=== PATIENT | female | born 1930 | race Caucasian/White ===

== ENCOUNTER 2016-11-30 13:19 | Inpatient (IN) | payer MEDICARE, OTHER ==
--- NOTE | ~2016-11-30 | HP ---
History And Physical [place] [id number] [facility] [place]. [address] NAME: ALVA COLEMAN : [birth year] STATUS : ADM IN [facility]#: [id number] AGE: 86 ADM/REG DATE : 11/30/16 MR#: [id number] REPORT SERV DATE: 11/30/16 DICTATED BY: RADHA SANCHES DATE: 11/30/16 REPORT STATUS : Draft TRANSCRIBED BY: MESERET DATE: 11/30/16 DATE OF ADMISSION: 11/30/2016 CHIEF COMPLAINT: Shortness of breath, fever. HISTORY OF PRESENT ILLNESS: The patient is an 86-year-old white female, who about three days ago, developed left lower extremity swelling and shortness of breath. She also had fever to 102 and shaking chills. She was thought to have pneumonia and was actually treated with antibiotics at the assisted living facility according to the gonugjck-br-fya who was at bedside. She states she failed to improve and she became so short of breath that she finally presented to the hospital today. She denies chest pain. She denies abdominal pain and does states she has had some shortness of breath and feels better on oxygen now that she is on oxygen. She has had some left leg swelling for a few days and she has some redness to her anterior tibia. She had fever and chills, but no cough. PAST MEDICAL HISTORY: Positive for: 1. CLL, in remission. 2. Atrial fibrillation status post cardioversion, on antiarrhythmics. 3. Osteoarthritis. 4. GERD. 5. Dementia. 6. Bullous pemphigoid with history of completing Rituxan in September, now on methotrexate for indefinite period of time. 7. Obesity. SOCIAL HISTORY: She is a nondrinker, nonsmoker. She resides at [facility]. FAMILY HISTORY: Negative for any blood clots. HOME MEDICATIONS: Reviewed and attached. PAST SURGICAL HISTORY: She has had a kyphoplasty, as well as a hysterectomy. REVIEW OF SYSTEMS: A full ten-point review of systems obtained. Pertinent positives mentioned in the HPI. PHYSICAL EXAMINATION: VITAL SIGNS: Temp 99.4, BP 140/75, sats 98% on 6 L. Pulse is in the 90s. GENERAL: Well-developed white female, pleasant and talkative. HEENT: Normocephalic, atraumatic. Throat clear. NECK: Supple. HEART: Regular rate and rhythm. LUNGS: She is diminished at the bases. ABDOMEN: Soft, nontender, nondistended. EXTREMITIES: Warm and dry. Her both lower extremities have palpable pulses at the feet. History And Physical [address] [address] NAME: ALVA COLEMAN : [birth year] STATUS : ADM IN PAT#: [id number] AGE: 86 ADM/REG DATE : 11/30/16 MR#: [id number] REPORT SERV DATE: 11/30/16 DICTATED BY: RADHA SANCHES DATE: 11/30/16 REPORT STATUS : Draft TRANSCRIBED BY: MESERET DATE: 11/30/16 Her left lower extremity is erythematous with some ecchymosis. It is red, swollen, and tender to the touch and mostly red around the left lateral tibia, and has about 2+ doughy edema on the left. SKIN: Otherwise intact. Her pemphigoid seems to have healed. She does have some scarring about her abdominal wall and thorax from it. NEURO: She is alert. She is pleasantly confused and demented. She moves all four extremities, but is generally weak. LABORATORY AND X-RAY: Chest x-ray shows left basal atelectasis versus infiltrate. ABG 7.52/29/43. CT of the chest shows bilateral PEs and bilateral interstitial and airspace disease scattered throughout the upper middle and lower lobes with regions of consolidation at the lung bases and a large hiatal hernia. CBC: White count of 10, H and H 11.6 and 34, and platelets are 208. Coags are normal. Flu swab is negative. Chemistry panel: Sodium 137, potassium 4.6, chloride 102, CO2 26. BUN and creatinine 42 and 1.38. Glucose 118. Troponins 0.03. Lactate was 1.7. BNP was 136. EKG showed sinus tachycardia with occasional PVCs in the right bundle. ASSESSMENT/PLAN: 1. Bilateral pulmonary thromboembolic disease with probable deep vein thrombosis in the left lower extremity. Duplex is pending. We will admit and place on an IV heparin drip. Continue O2 to keep sats above 95%. Place her on a tele bed. She could likely be switched to an oral anticoagulant in the next 24-48 hours. Certainly, it would be easier to use something such as Xarelto versus Coumadin, but we will defer that to the attending physician on the floor tomorrow. We will continue supportive care. I am going to perform a duplex of her left lower extremity and go from there. 2. Fever. This certainly could be due to the pulmonary embolus, but she does have some consolidation on her CT scan. I think it is reasonable to cover her with pneumonia antibiotics just until we rule out an infectious component to some of her presentation. We will send off some cultures, procalcitonin, cover her with Rocephin and azithromycin overnight. 3. Left lower extremity swelling, likely secondary to deep vein thrombosis. Awaiting duplex. 4. History of dementia. 5. History of chronic lymphocytic leukemia, in remission. 6. History of gastroesophageal reflux disease remotely. 7. History of bullous pemphigoid, currently in remission. Continue methotrexate. 8. Deep venous thrombosis prophylaxis. She is going to be fully anticoagulated. 9. Likely chronic kidney disease. Her creatinine is 1.38 today I noticed in the past, but it has been previously. We will follow this closely. We will do some labs in the morning. 10.Disposition, pending above. NICOLÁS/MESERET History And Physical [address] [address] NAME: ALVA COLEMAN : [birth year] STATUS : ADM IN [facility]#: [id number] AGE: 86 ADM/REG DATE : 11/30/16 MR#: [id number] REPORT SERV DATE: 11/30/16 DICTATED BY: RADHA SANCHES DATE: 11/30/16 REPORT STATUS : Draft TRANSCRIBED BY: MESERET DATE: 11/30/16 Radha Sanches M.D. / [id number] CC: MD LETICIA Sandoval ROBERT L. Brooke R. Daniel, M.D.
--- NOTE | ~2016-11-30 | DS ---
Discharge Summary [facility] [address] [facility] [place]. [address] NAME: ALVA COLEMAN : [birth year] STATUS : DIS IN PAT#: [id number] AGE: 86 ADM/REG DATE : 11/30/16 MR#: [id number] REPORT SERV DATE: 12/10/16 DICTATED BY: FIDEL TORRES DATE: 12/10/16 REPORT STATUS : Draft TRANSCRIBED BY: MODL DATE: 12/10/16 ADMISSION DATE: 11/30/2016 DISCHARGE DATE: 12/10/2016 REASON FOR ADMISSION: This is an 86-year-old female who was admitted with shortness of breath and fever. In the emergency room, she was found to have a left lower extremity that was erythematous with some ecchymosis, red swollen, and tender to touch. She would have a CT of the chest that did show bilateral PEs and bilateral interstitial and airspace disease scattered throughout the upper and middle and lower lobes with regions of consolidation at the lung bases and then the lower extremity ultrasound which showed extensive DVT of the left lower extremity, appears acute calf vein involvement and also involvement of the junction of the greater saphenous common femoral vein. DISCHARGE DIAGNOSES: 1. Bilateral pulmonary embolism with left lower extremity deep venous thrombosis. 2. Left lower extremity cellulitis and edema. 3. Anemia. 4. Chronic kidney disease 3. 5. Acute hypoxic respiratory failure. 6. History of chronic lymphocytic leukemia. 7. History of bullous pemphigoid. 8. Dementia. 9. Chronic nosebleeds. 10.Moderate malnutrition. HOSPITAL COURSE: 1. Bilateral PE with left lower extremity DVT. The patient admitted and started on IV heparin drip. She was admitted to the floor as she was hemodynamically stable and on oxygen 3 to 4 L nasal cannula. She would eventually be transitioned to oral Eliquis and her oxygen will be weaned off. 2. Left lower extremity cellulitis. The patient had profound erythema, warmth, and redness of the left lower extremity. It had been initially gave the chance to clear on its own with anticoagulation, however, by day 5, the patient still had intense red painful area from just below the knee all the way to the ankle. Therefore, decision was made to start her on IV Ancef. After three days of IV Ancef, she had significant clearing of the erythema, and she was also diuresed with IV Lasix and then transitioned to oral torsemide. She still has some residual edema of the left extremity as well as redness, but it is much improved. She has been transitioned to oral Duricef and will need to complete four more days. 3. Anemia with Hemoccult-positive stool. The patient has had anemia while here at the hospital, but her hemoglobin is stable at 10.8. Her stools were hemocculted and were Hemoccult-positive. Due to her age and comorbidities, unclear whether she is even a candidate for colonoscopy, however, we will have her follow up with GI in one month. 4. CKD 3. Creatinine stable at 1.2. 5. Acute hypoxic respiratory failure. The patient weaned off oxygen. O2 sats within normal limits on room air. Discharge Summary [address] [place]. [address] NAME: ALVA COLEMAN : [birth year] STATUS : DIS IN PAT#: [id number] AGE: 86 ADM/REG DATE : 11/30/16 MR#: [id number] REPORT SERV DATE: 12/10/16 DICTATED BY: FIDEL TORRES DATE: 12/10/16 REPORT STATUS : Draft TRANSCRIBED BY: MESERET DATE: 12/10/16 6. History of CLL. The patient's white blood cell count stable at 7.3. 7. Dementia. The patient's mental status at baseline. 8. Chronic nosebleeds. The patient has chronic nosebleeds. Thankfully, has not had any nosebleeds here at the hospital after being started on anticoagulants strangely enough, but she has very thick clots and in both nares of her nose and we have started treating her with Safe Gel four times a day, trying to soften the clot, so they will resolve on their own. Certainly, I do not want to remove them with her on anticoagulation. 9. Moderate malnutrition. The patient showed a very little desire to move, get out of bed, feed herself, and question her drive to get better, therefore she has had poor appetite while being here. We have placed her on Ensure t.i.d. which she has drank some how and starting her on Remeron leaving the hospital, stopping her Lexapro, and putting her on Remeron. Discussed with, son even though she has gotten through this acute event, her big picture outlook is actually quite poor and unless her nutrition intake and drive to get up, move, and be active increases suspect that she has a strong chance of needing hospice before years end due to her age comorbidities and apparent failure to thrive. However, we will attempt for rehab stay and see if we can get her back to her assisted living at . DISCHARGE PLAN: The patient is discharged to rehab and hopefully be able to return to [facility]. Follow up with her primary care after rehab and GI in one month. RACHID/MALIKL Fidel Torres APN / [id number] CC: Albina Thomas M.D.
[~2016-11-30 13:19] MED LIST: ASA5GR PO; ASAEC PO; B121000P IM; CLARIT10 PO; FLECAINIDE50 MG PO; FOLIC PO; IBU600 PO; LEVOTHYROXIN75 MCG PO; LEXAPRO20 PO; NORV5 PO; P5 PO; TAMBO50 PO; TREXALL5 MG PO
[2016-11-30 13:29] LABS: ALLENS TEST Pos; BE (BASE EXCESS) 0.5 MEQ/L (0 +/- 2.5); CARBOXYHEMOGLOBIN 1.3 % (0-3); HCO3 (ACTUAL BICARBONATE) 22.5 MEQ/L (23-27); INSTRUMENT SERIAL # 8087; METHEMOGLOBIN 0.5 % (0-3); O2 CONTENT 13.6 VOL% (18-24); OPERATOR ID 14335; PCO2 (CO2 TENSION) 29 MMHG (35-45); PO2 (O2 TENSION) 43 MMHG (79-93); SAMPLE Arterial; pH 7.52 (7.37-7.43)
[2016-11-30 13:39] LABS: BASOPHILS 0.1 %; BASOPHILS ABSOLUTE 0.01 10/3/uL (0.0-0.16); EOSINOPHILS 0 %; HEMATOCRIT 34.3 % (36.0-48.0); HEMOGLOBIN 11.6 g/dL (12.0-16.0); IMMATURE GRANULOCYTES 0.5 %; IMMATURE GRANULOCYTES ABSOLUTE 0.05 10/3/uL (0.0-0.11); LYMPHOCYTES 2.6 %; LYMPHOCYTES ABSOLUTE 0.26 10/3/uL (0.67-4.30); MEAN CORPUS HGB CONC 33.8 g/dL (32.0-36.0); MEAN CORPUSCULAR HEMOGLOB 32.9 pg (26.0-34.0); MEAN CORPUSCULAR VOLUME 97.2 fL (80-100); MEAN PLATELET VOLUME 9.2 fL (9.2-13.0); NEUTROPHILS 93.8 %; NEUTROPHILS ABSOLUTE 9.45 10/3/uL (2.02-8.40); RBC DISTRIBUTION WIDTH 16.3 % (12.0-16.0); RED CELL COUNT 3.53 10/6/uL (4.0-5.6); WHITE BLOOD CELLS 10.1 10/3/uL (4.5-10.5)
[2016-11-30 13:40] LABS: MANUAL DIFF NO %; PLATELET COUNT 208 10/3/uL (150-400)
[2016-11-30 13:46] LABS: INTERNATIONAL NORMAL RATI 1.3 UNITS (-); PARTIAL THROMBO TIME 25.8 SEC (22.5-37.2); PROTIME (NOT ORD) 15.6 SEC (12.0-14.5)
[2016-11-30 13:53] LABS: INFLUENZA A SCREEN NEGATIVE (NEGATIVE); INFLUENZA B SCREEN NEGATIVE (NEGATIVE)
[2016-11-30 13:55] LABS: BUN (BLOOD UREA NITROGEN) 42 MG/DL (6-23); CALCIUM, SERUM 7.6 MG/DL (8.5-10.4); CHEST PAIN PROFILE TAT 0 Hrs 20 Mins; CHLORIDE, SERUM 102 MMOL/L (96-112); CO2 (CARBON DIOXIDE) 26 MMOL/L (24-34); CREATININE 1.38 MG/DL (0.55-1.02); GFR AFRICAN AMERICAN 39 ML/MIN (>=60); GFR NON AFRICAN AMERICAN 34 ML/MIN (>=60); GLUCOSE, SERUM 118 MG/DL (60-99); POTASSIUM, SERUM 4.6 MMOL/L (3.5-5.3); SODIUM, SERUM 137 MMOL/L (135-148); TROPONIN I 0.03 NG/ML (<0.05)
[2016-11-30 14:01] LABS: LACTATE 1.7 MMOL/L (0.3-2.4)
[2016-11-30 17:00] LABS: PROCALCITONIN 0.09 ng/mL (<0.5)
[2016-12-01 03:56] LABS: CALCIUM, SERUM 7.8 MG/DL (8.5-10.4); CHLORIDE, SERUM 104 MMOL/L (96-112); CO2 (CARBON DIOXIDE) 27 MMOL/L (24-34); CREATININE 1.18 MG/DL (0.55-1.02); GFR AFRICAN AMERICAN 48 ML/MIN (>=60); GFR NON AFRICAN AMERICAN 41 ML/MIN (>=60); POTASSIUM, SERUM 4.2 MMOL/L (3.5-5.3); SODIUM, SERUM 139 MMOL/L (135-148)
[2016-12-01 03:58] LABS: BUN (BLOOD UREA NITROGEN) 35 MG/DL (6-23); GLUCOSE, SERUM 85 MG/DL (60-99)
[2016-12-01 04:42] LABS: BASOPHILS 0.2 %; BASOPHILS ABSOLUTE 0.02 10/3/uL (0.0-0.16); EOSINOPHILS 0.8 %; EOSINOPHILS ABSOLUTE 0.07 10/3/uL (0.0-0.53); HEMATOCRIT 35.7 % (36.0-48.0); HEMOGLOBIN 12.1 g/dL (12.0-16.0); IMMATURE GRANULOCYTES 0.6 %; IMMATURE GRANULOCYTES ABSOLUTE 0.05 10/3/uL (0.0-0.11); LYMPHOCYTES ABSOLUTE 0.89 10/3/uL (0.67-4.30); MANUAL DIFF NO %; MEAN CORPUS HGB CONC 33.9 g/dL (32.0-36.0); MEAN CORPUSCULAR HEMOGLOB 33.1 pg (26.0-34.0); MEAN CORPUSCULAR VOLUME 97.5 fL (80-100); MEAN PLATELET VOLUME 9.4 fL (9.2-13.0); MONOCYTES 2.2 %; NEUTROPHILS 86.2 %; NEUTROPHILS ABSOLUTE 7.66 10/3/uL (2.02-8.40); PLATELET COUNT 249 10/3/uL (150-400); RBC DISTRIBUTION WIDTH 16.4 % (12.0-16.0); RED CELL COUNT 3.66 10/6/uL (4.0-5.6); WHITE BLOOD CELLS 8.9 10/3/uL (4.5-10.5)
[2016-12-02 06:29] LABS: BASOPHILS 0.1 %; BASOPHILS ABSOLUTE 0.01 10/3/uL (0.0-0.16); EOSINOPHILS 0.9 %; EOSINOPHILS ABSOLUTE 0.08 10/3/uL (0.0-0.53); HEMATOCRIT 33.9 % (36.0-48.0); HEMOGLOBIN 11.4 g/dL (12.0-16.0); IMMATURE GRANULOCYTES 0.3 %; IMMATURE GRANULOCYTES ABSOLUTE 0.03 10/3/uL (0.0-0.11); LYMPHOCYTES 9.4 %; LYMPHOCYTES ABSOLUTE 0.88 10/3/uL (0.67-4.30); MEAN CORPUS HGB CONC 33.6 g/dL (32.0-36.0); MEAN CORPUSCULAR HEMOGLOB 31.8 pg (26.0-34.0); MEAN PLATELET VOLUME 9.1 fL (9.2-13.0); MONOCYTES 0.6 %; MONOCYTES ABSOLUTE 0.06 10/3/uL (0.21-1.20); NEUTROPHILS 88.7 %; PLATELET COUNT 292 10/3/uL (150-400); RBC DISTRIBUTION WIDTH 16.2 % (12.0-16.0); RED CELL COUNT 3.59 10/6/uL (4.0-5.6); WHITE BLOOD CELLS 9.4 10/3/uL (4.5-10.5)
[2016-12-02 06:31] LABS: MANUAL DIFF NO %; MEAN CORPUSCULAR VOLUME 94.4 fL (80-100)
[2016-12-02 06:41] LABS: CALCIUM, SERUM 7.8 MG/DL (8.5-10.4); CHLORIDE, SERUM 100 MMOL/L (96-112); CO2 (CARBON DIOXIDE) 23 MMOL/L (24-34); CREATININE 0.94 MG/DL (0.55-1.02); GFR AFRICAN AMERICAN 63 ML/MIN (>=60); GFR NON AFRICAN AMERICAN 54 ML/MIN (>=60); GLUCOSE, SERUM 97 MG/DL (60-99); SODIUM, SERUM 135 MMOL/L (135-148)
[2016-12-02 06:42] LABS: BUN (BLOOD UREA NITROGEN) 29 MG/DL (6-23)
[2016-12-03 06:22] LABS: BASOPHILS 0.2 %; BASOPHILS ABSOLUTE 0.02 10/3/uL (0.0-0.16); EOSINOPHILS 1.3 %; EOSINOPHILS ABSOLUTE 0.11 10/3/uL (0.0-0.53); HEMATOCRIT 31.5 % (36.0-48.0); HEMOGLOBIN 10.8 g/dL (12.0-16.0); IMMATURE GRANULOCYTES 0.5 %; IMMATURE GRANULOCYTES ABSOLUTE 0.04 10/3/uL (0.0-0.11); LYMPHOCYTES 11.9 %; LYMPHOCYTES ABSOLUTE 0.98 10/3/uL (0.67-4.30); MEAN CORPUS HGB CONC 34.3 g/dL (32.0-36.0); MEAN CORPUSCULAR HEMOGLOB 32.2 pg (26.0-34.0); MEAN PLATELET VOLUME 9.4 fL (9.2-13.0); MONOCYTES 2.7 %; MONOCYTES ABSOLUTE 0.22 10/3/uL (0.21-1.20); NEUTROPHILS 83.4 %; NEUTROPHILS ABSOLUTE 6.84 10/3/uL (2.02-8.40); PLATELET COUNT 324 10/3/uL (150-400); RBC DISTRIBUTION WIDTH 15.9 % (12.0-16.0); RED CELL COUNT 3.35 10/6/uL (4.0-5.6); WHITE BLOOD CELLS 8.2 10/3/uL (4.5-10.5)
[2016-12-03 06:23] LABS: MANUAL DIFF NO %
[2016-12-03 09:51] LABS: BUN (BLOOD UREA NITROGEN) 31 MG/DL (6-23); CHLORIDE, SERUM 100 MMOL/L (96-112); CO2 (CARBON DIOXIDE) 26 MMOL/L (24-34); CREATININE 0.99 MG/DL (0.55-1.02); GFR AFRICAN AMERICAN 59 ML/MIN (>=60); GFR NON AFRICAN AMERICAN 51 ML/MIN (>=60); GLUCOSE, SERUM 92 MG/DL (60-99); SODIUM, SERUM 136 MMOL/L (135-148)
[2016-12-03 14:11] LABS: ALLENS TEST Pos; BE (BASE EXCESS) -2.1 MEQ/L (0 +/- 2.5); CARBOXYHEMOGLOBIN 0.3 % (0-3); DEVICE NC; HCO3 (ACTUAL BICARBONATE) 20.7 MEQ/L (23-27); HEMOBLOGIN CONTENT 11.7 G/DL (12-16); INSTRUMENT SERIAL # 35151; METHEMOGLOBIN 0.4 % (0-3); O2 CONTENT 14.9 VOL% (18-24); PCO2 (CO2 TENSION) 29 MMHG (35-45); PO2 (O2 TENSION) 61 MMHG (79-93); SAMPLE Arterial; pH 7.47 (7.37-7.43)
[2016-12-04 07:25] LABS: BASOPHILS 0.3 %; BASOPHILS ABSOLUTE 0.02 10/3/uL (0.0-0.16); EOSINOPHILS 2.6 %; EOSINOPHILS ABSOLUTE 0.17 10/3/uL (0.0-0.53); HEMATOCRIT 29.2 % (36.0-48.0); HEMOGLOBIN 9.9 g/dL (12.0-16.0); IMMATURE GRANULOCYTES 1.1 %; IMMATURE GRANULOCYTES ABSOLUTE 0.07 10/3/uL (0.0-0.11); LYMPHOCYTES 14.9 %; LYMPHOCYTES ABSOLUTE 0.96 10/3/uL (0.67-4.30); MEAN CORPUS HGB CONC 33.9 g/dL (32.0-36.0); MEAN CORPUSCULAR HEMOGLOB 32.7 pg (26.0-34.0); MEAN CORPUSCULAR VOLUME 96.4 fL (80-100); MEAN PLATELET VOLUME 9.1 fL (9.2-13.0); MONOCYTES ABSOLUTE 0.26 10/3/uL (0.21-1.20); NEUTROPHILS 77.1 %; NEUTROPHILS ABSOLUTE 4.95 10/3/uL (2.02-8.40); PLATELET COUNT 349 10/3/uL (150-400); RBC DISTRIBUTION WIDTH 15.9 % (12.0-16.0); RED CELL COUNT 3.03 10/6/uL (4.0-5.6); WHITE BLOOD CELLS 6.4 10/3/uL (4.5-10.5)
[2016-12-04 07:27] LABS: MANUAL DIFF NO %
[2016-12-04 07:51] LABS: A/G RATIO 0.7 (0.7-1.9); ALKALINE PHOSPHATASE 62 U/L (45-117); BUN (BLOOD UREA NITROGEN) 24 MG/DL (6-23); CHLORIDE, SERUM 102 MMOL/L (96-112); CO2 (CARBON DIOXIDE) 25 MMOL/L (24-34); CREATININE 0.93 MG/DL (0.55-1.02); GFR AFRICAN AMERICAN 64 ML/MIN (>=60); GFR NON AFRICAN AMERICAN 55 ML/MIN (>=60); GLOBULIN 2.9 G/DL (2.5-4.1); GLUCOSE, SERUM 87 MG/DL (60-99); POTASSIUM, SERUM 4.4 MMOL/L (3.5-5.3); PREALBUMIN 7.8 MG/DL (17.0-43.0); SGOT(AST) 55 U/L (5-40); SGPT(ALT) 28 U/L (5-65); SODIUM, SERUM 136 MMOL/L (135-148); TOTAL BILIRUBIN 0.5 MG/DL (0-1.2); TOTAL PROTEIN 4.9 G/DL (6.0-8.5)
[2016-12-04 12:56] LABS: % IRON SAT 13 % (20-50); FERRITIN 595 NG/ML (8-252); IRON BINDING CAPACITY 196 MCG/DL (225-410); IRON, SERUM 25 MCG/DL (35-150)
[2016-12-04 13:42] LABS: PROCALCITONIN 0.17 ng/mL (<0.5)
[2016-12-04 14:23] LABS: ASCORBIC ACID (UR NOT ORDER) NEG (NEG); BILIRUBIN, URINE NEGATIVE (NEG); KETONE, URINE NEGATIVE (NEG); LEUKOCYTE ESTERASE(NOT OR NEG (NEG); WBC (NOT ORDERED) (RFLEX) < 1 (0-5)
[2016-12-05 05:40] LABS: BASOPHILS 0.3 %; BASOPHILS ABSOLUTE 0.02 10/3/uL (0.0-0.16); EOSINOPHILS 2.2 %; EOSINOPHILS ABSOLUTE 0.16 10/3/uL (0.0-0.53); HEMATOCRIT 29.9 % (36.0-48.0); HEMOGLOBIN 10.2 g/dL (12.0-16.0); IMMATURE GRANULOCYTES 0.8 %; IMMATURE GRANULOCYTES ABSOLUTE 0.06 10/3/uL (0.0-0.11); LYMPHOCYTES 13.3 %; LYMPHOCYTES ABSOLUTE 0.97 10/3/uL (0.67-4.30); MEAN CORPUS HGB CONC 34.1 g/dL (32.0-36.0); MEAN CORPUSCULAR HEMOGLOB 32.9 pg (26.0-34.0); MEAN CORPUSCULAR VOLUME 96.5 fL (80-100); MEAN PLATELET VOLUME 8.6 fL (9.2-13.0); MONOCYTES 4.9 %; MONOCYTES ABSOLUTE 0.36 10/3/uL (0.21-1.20); NEUTROPHILS 78.5 %; NEUTROPHILS ABSOLUTE 5.74 10/3/uL (2.02-8.40); PLATELET COUNT 384 10/3/uL (150-400); RBC DISTRIBUTION WIDTH 16.3 % (12.0-16.0); WHITE BLOOD CELLS 7.3 10/3/uL (4.5-10.5)
[2016-12-05 05:43] LABS: MANUAL DIFF NO %
[2016-12-05 05:54] LABS: BUN (BLOOD UREA NITROGEN) 24 MG/DL (6-23); CALCIUM, SERUM 8.1 MG/DL (8.5-10.4); CHLORIDE, SERUM 101 MMOL/L (96-112); CO2 (CARBON DIOXIDE) 27 MMOL/L (24-34); CREATININE 1.07 MG/DL (0.55-1.02); GFR AFRICAN AMERICAN 54 ML/MIN (>=60); GFR NON AFRICAN AMERICAN 46 ML/MIN (>=60); GLUCOSE, SERUM 77 MG/DL (60-99); POTASSIUM, SERUM 3.9 MMOL/L (3.5-5.3); SODIUM, SERUM 137 MMOL/L (135-148)
[2016-12-06 07:08] LABS: BASOPHILS 0.4 %; BASOPHILS ABSOLUTE 0.03 10/3/uL (0.0-0.16); EOSINOPHILS 2.3 %; EOSINOPHILS ABSOLUTE 0.18 10/3/uL (0.0-0.53); HEMATOCRIT 29.1 % (36.0-48.0); HEMOGLOBIN 9.8 g/dL (12.0-16.0); IMMATURE GRANULOCYTES 1.3 %; LYMPHOCYTES ABSOLUTE 1.08 10/3/uL (0.67-4.30); MEAN CORPUS HGB CONC 33.7 g/dL (32.0-36.0); MEAN CORPUSCULAR VOLUME 95.1 fL (80-100); MEAN PLATELET VOLUME 9.2 fL (9.2-13.0); MONOCYTES 7.6 %; MONOCYTES ABSOLUTE 0.59 10/3/uL (0.21-1.20); NEUTROPHILS 74.4 %; NEUTROPHILS ABSOLUTE 5.76 10/3/uL (2.02-8.40); PLATELET COUNT 399 10/3/uL (150-400); RED CELL COUNT 3.06 10/6/uL (4.0-5.6); WHITE BLOOD CELLS 7.7 10/3/uL (4.5-10.5)
[2016-12-06 07:09] LABS: MANUAL DIFF NO %
[2016-12-06 07:24] LABS: BUN (BLOOD UREA NITROGEN) 23 MG/DL (6-23); CALCIUM, SERUM 7.8 MG/DL (8.5-10.4); CHLORIDE, SERUM 97 MMOL/L (96-112); CO2 (CARBON DIOXIDE) 25 MMOL/L (24-34); CREATININE 1.01 MG/DL (0.55-1.02); GFR AFRICAN AMERICAN 58 ML/MIN (>=60); GFR NON AFRICAN AMERICAN 50 ML/MIN (>=60); GLUCOSE, SERUM 80 MG/DL (60-99); POTASSIUM, SERUM 4.2 MMOL/L (3.5-5.3); SODIUM, SERUM 136 MMOL/L (135-148)
[2016-12-07 05:56] LABS: BASOPHILS 0.3 %; BASOPHILS ABSOLUTE 0.03 10/3/uL (0.0-0.16); EOSINOPHILS 2.3 %; HEMOGLOBIN 10.5 g/dL (12.0-16.0); IMMATURE GRANULOCYTES 0.9 %; IMMATURE GRANULOCYTES ABSOLUTE 0.08 10/3/uL (0.0-0.11); LYMPHOCYTES ABSOLUTE 1.06 10/3/uL (0.67-4.30); MEAN CORPUS HGB CONC 32.7 g/dL (32.0-36.0); MEAN CORPUSCULAR HEMOGLOB 31.6 pg (26.0-34.0); MEAN CORPUSCULAR VOLUME 96.7 fL (80-100); MEAN PLATELET VOLUME 8.8 fL (9.2-13.0); MONOCYTES 8.9 %; MONOCYTES ABSOLUTE 0.79 10/3/uL (0.21-1.20); NEUTROPHILS 75.6 %; NEUTROPHILS ABSOLUTE 6.69 10/3/uL (2.02-8.40); PLATELET COUNT 499 10/3/uL (150-400); RBC DISTRIBUTION WIDTH 16.2 % (12.0-16.0); RED CELL COUNT 3.32 10/6/uL (4.0-5.6); WHITE BLOOD CELLS 8.9 10/3/uL (4.5-10.5)
[2016-12-07 05:57] LABS: HEMATOCRIT 32.1 % (36.0-48.0); MANUAL DIFF NO %
[2016-12-07 06:05] LABS: BUN (BLOOD UREA NITROGEN) 22 MG/DL (6-23); CALCIUM, SERUM 8.1 MG/DL (8.5-10.4); CHLORIDE, SERUM 94 MMOL/L (96-112); CO2 (CARBON DIOXIDE) 29 MMOL/L (24-34); CREATININE 1.15 MG/DL (0.55-1.02); GFR AFRICAN AMERICAN 49 ML/MIN (>=60); GFR NON AFRICAN AMERICAN 42 ML/MIN (>=60); GLUCOSE, SERUM 91 MG/DL (60-99); SODIUM, SERUM 138 MMOL/L (135-148)
[2016-12-07 06:08] LABS: POTASSIUM, SERUM 3.1 MMOL/L (3.5-5.3)
[2016-12-08 05:47] LABS: BUN (BLOOD UREA NITROGEN) 24 MG/DL (6-23); CALCIUM, SERUM 8.4 MG/DL (8.5-10.4); CHLORIDE, SERUM 94 MMOL/L (96-112); CO2 (CARBON DIOXIDE) 32 MMOL/L (24-34); CREATININE 1.27 MG/DL (0.55-1.02); GFR AFRICAN AMERICAN 44 ML/MIN (>=60); GFR NON AFRICAN AMERICAN 38 ML/MIN (>=60); GLUCOSE, SERUM 101 MG/DL (60-99); POTASSIUM, SERUM 3.6 MMOL/L (3.5-5.3); SODIUM, SERUM 135 MMOL/L (135-148)
[2016-12-09 04:48] LABS: BASOPHILS 0.4 %; BASOPHILS ABSOLUTE 0.03 10/3/uL (0.0-0.16); EOSINOPHILS 2.9 %; EOSINOPHILS ABSOLUTE 0.21 10/3/uL (0.0-0.53); HEMATOCRIT 32.3 % (36.0-48.0); HEMOGLOBIN 10.8 g/dL (12.0-16.0); IMMATURE GRANULOCYTES 0.4 %; IMMATURE GRANULOCYTES ABSOLUTE 0.03 10/3/uL (0.0-0.11); LYMPHOCYTES 16.7 %; LYMPHOCYTES ABSOLUTE 1.22 10/3/uL (0.67-4.30); MANUAL DIFF NO %; MEAN CORPUS HGB CONC 33.4 g/dL (32.0-36.0); MEAN CORPUSCULAR HEMOGLOB 32.7 pg (26.0-34.0); MEAN CORPUSCULAR VOLUME 97.9 fL (80-100); MEAN PLATELET VOLUME 8.8 fL (9.2-13.0); MONOCYTES 3.1 %; MONOCYTES ABSOLUTE 0.23 10/3/uL (0.21-1.20); NEUTROPHILS 76.5 %; NEUTROPHILS ABSOLUTE 5.59 10/3/uL (2.02-8.40); PLATELET COUNT 514 10/3/uL (150-400); RBC DISTRIBUTION WIDTH 16.3 % (12.0-16.0); WHITE BLOOD CELLS 7.3 10/3/uL (4.5-10.5)
[2016-12-09 04:57] LABS: CALCIUM, SERUM 8.5 MG/DL (8.5-10.4); CHLORIDE, SERUM 95 MMOL/L (96-112); CO2 (CARBON DIOXIDE) 31 MMOL/L (24-34); CREATININE 1.33 MG/DL (0.55-1.02); GFR AFRICAN AMERICAN 41 ML/MIN (>=60); GFR NON AFRICAN AMERICAN 36 ML/MIN (>=60); GLUCOSE, SERUM 97 MG/DL (60-99); SODIUM, SERUM 137 MMOL/L (135-148)
[2016-12-09 04:59] LABS: BUN (BLOOD UREA NITROGEN) 31 MG/DL (6-23); POTASSIUM, SERUM 4.1 MMOL/L (3.5-5.3)
[2016-12-10 06:31] LABS: BUN (BLOOD UREA NITROGEN) 33 MG/DL (6-23); CALCIUM, SERUM 8.3 MG/DL (8.5-10.4); CHLORIDE, SERUM 94 MMOL/L (96-112); CO2 (CARBON DIOXIDE) 33 MMOL/L (24-34); GFR AFRICAN AMERICAN 47 ML/MIN (>=60); GFR NON AFRICAN AMERICAN 40 ML/MIN (>=60); GLUCOSE, SERUM 92 MG/DL (60-99); POTASSIUM, SERUM 3.4 MMOL/L (3.5-5.3); SODIUM, SERUM 135 MMOL/L (135-148)
== END 2016-12-10 19:04 | DRG 175 ==
LOC: ER 13:19 → 7NO 15:10
PROVIDERS: Internal Medicine; Nurse Practitioner; Nurse Practitioner Acute Care; Nurse Practitioner Gerontology
DX: I26.99 Other pulmonary embolism without acute cor pulmonale (principal); J96.01 Acute respiratory failure with hypoxia; E44.0 Moderate protein-calorie malnutrition; C91.11 Chronic lymphocytic leukemia of B-cell type in remission; K21.9 Gastro-esophageal reflux disease without esophagitis; F03.90 Unspecified dementia, unspecified severity, without behavioral disturbance, psychotic disturbance, mood disturbance, and anxiety; I82.4Z2 Acute embolism and thrombosis of unspecified deep veins of left distal lower extremity; I82.412 Acute embolism and thrombosis of left femoral vein; L03.116 Cellulitis of left lower limb; N18.3 Chronic kidney disease, stage 3 (moderate); D64.9 Anemia, unspecified; Z79.82 Long term (current) use of aspirin
CPT/HCPCS: 36600; 71010; 71275; 74000; 80048; 80053; 81001; 82272; 82728; 82805; 83540; 83550; 83605; 83735; 83880; 84132; 84134; 84145; 84484; 85025; 85610; 85730; 87040; 87804; 93005; 93970; 96374; 97161-GP; 97530-GP; 99285; A9270-GY; C8929; G8978-CM-GP; G8979-CL-GP; J0456; J0690; J8610; Q9957; Q9967